=== PATIENT | female | born 1990 | race Caucasian/White ===

== ENCOUNTER 2017-03-16 21:45 | Emergency (ER) | payer MEDICAID ==
[2016-08-09 23:51] VITALS: BMI 37.7
[~2017-03-16 21:45] MED LIST: HYDROCODON-ACE1 EAC7 PO; LAMICTAL200 MG PO
[2017-03-16 23:10] LABS: BASOPHILS 0.1 % (0-2); EOSINOPHILS 1.8 % (0-7); HEMATOCRIT 38.3 % (36.0-48.0); IMMATURE GRANULOCYTES 0.3 % (0-5); LYMPHOCYTES 9.1 % (15-50); MCHC 33.9 g/dL (31.0-37.0); MCV 85.3 fL (80.0-100.0); MEAN PLATELET VOLUME 11.8 fL (7.4-10.4); MONOCYTES 6.9 % (2-11); NEUTROPHILS 81.8 % (40-80); PLATELET COUNT 179 10x3/uL (130-400); RBC 4.49 10x6/uL (4.00-5.40); RDW 13.5 % (11.5-14.5)
[2017-03-16 23:18] LABS: ALBUMIN 3.4 g/dL (3.4-5.0); ALKALINE PHOSPHATASE 95 U/L (46-116); ALT (SGPT) 50 U/L (10-68); CALC OSMOLALITY 276 mosm/kg (275-300); CALCIUM 8.9 mg/dL (8.5-10.1); CARBON DIOXIDE 22.5 mmol/L (21.0-32.0); CHLORIDE - SERUM 105 mmol/L (98-107); CREATININE - SERUM 0.9 mg/dL (0.6-1.3); GLUCOSE 114 mg/dL (74-106); POTASSIUM - SERUM 3.4 mmol/L (3.5-5.1); PROTEIN - SERUM 7.6 g/dL (6.4-8.2); SODIUM 139 mmol/L (136-145); UREA NITROGEN 7 mg/dL (7-18); eGFR NON AFRICAN AMERICAN 81 mL/min (90-120)
[2017-03-16 23:18] LABS: APPEARANCE CLOUDY (CLEAR); BILIRUBIN NEGATIVE (NEGATIVE); COLOR YELLOW (YELLOW); GLUCOSE NEGATIVE (NEGATIVE); KETONE NEGATIVE (NEGATIVE); LEUKOCYTE ESTERASE TRACE (NEGATIVE); NITRITE NEGATIVE (NEGATIVE); PROTEIN NEGATIVE (NEGATIVE); SPECIFIC GRAVITY 1.025 (1.005-1.020)
[2017-03-16 23:22] LABS: TROPONIN-I < 0.017 ng/mL (0.000-0.060)
[2017-03-16 23:24] LABS: UDS - AMPHET NEGATIVE QUAL (NEGATIVE); UDS - BARB NEGATIVE QUAL (NEGATIVE); UDS - BENZO NEGATIVE QUAL (NEGATIVE); UDS - COCAINE NEGATIVE QUAL (NEGATIVE); UDS - METH NEGATIVE QUAL (NEGATIVE); UDS - OPIATE NEGATIVE QUAL (NEGATIVE); UDS - PCP NEGATIVE QUAL (NEGATIVE); UDS - THC NEGATIVE QUAL (NEGATIVE)
[2017-03-16 23:33] LABS: BACTERIA MANY /hpf (NONE SEEN); RED CELLS - URINE 0-5 /hpf (0-5); WHITE CELLS - URINE 0-5 /hpf (0-5)
[2017-03-16 23:34] LABS: HYALINE CAST OCC /lpf (NONE SEEN)
== END 2017-03-17 00:15 | disposition home or self-care (01) ==
LOC: D.ER 21:45
PROVIDERS: Family Medicine; Nurse Practitioner Family
DX: J20.9 Acute bronchitis, unspecified (principal)

== ENCOUNTER 2017-05-18 22:18 | Emergency (ER) | payer MEDICAID ==
[2016-08-09 23:51] VITALS: BMI 37.7
[2017-05-18 23:10] LABS: BASOPHILS 0.1 % (0-2); EOSINOPHILS 0.1 % (0-7); HEMATOCRIT 42.2 % (36.0-48.0); HEMOGLOBIN 14.5 g/dL (12-16); IMMATURE GRANULOCYTES 0.3 % (0-5); LYMPHOCYTES 8.6 % (15-50); MCH 29.1 pg (26.0-34.0); MCHC 34.4 g/dL (31.0-37.0); MCV 84.6 fL (80.0-100.0); MEAN PLATELET VOLUME 11.9 fL (7.4-10.4); MONOCYTES 5.9 % (2-11); RBC 4.99 10x6/uL (4.00-5.40); RDW 13.5 % (11.5-14.5); WBC 17.9 10x3/uL (4.8-10.8)
[2017-05-18 23:13] LABS: PLATELET COUNT 219 10x3/uL (130-400)
[2017-05-18 23:24] LABS: APPEARANCE CLOUDY (CLEAR); BILIRUBIN NEGATIVE (NEGATIVE); COLOR RED (YELLOW); GLUCOSE NEGATIVE (NEGATIVE); KETONE NEGATIVE (NEGATIVE); LEUKOCYTE ESTERASE 1+ (NEGATIVE); NITRITE NEGATIVE (NEGATIVE); PROTEIN 2+ mg/dL (NEGATIVE); UROBILINOGEN NORMAL (NORMAL)
[2017-05-18 23:24] LABS: HCG SERUM NEGATIVE (NEGATIVE)
[2017-05-18 23:25] LABS: BACTERIA MANY /hpf (NONE SEEN); EPITHELIAL CELLS 0-5 /hpf (0-5); RED CELLS - URINE >50 /hpf (0-5)
[2017-05-18 23:26] LABS: WHITE CELLS - URINE 0-5 /hpf (0-5)
[2017-05-18 23:30] LABS: ALBUMIN 3.3 g/dL (3.4-5.0); ANION GAP 14.1 mmol/L (8-16); BILIRUBIN - TOTAL 0.33 mg/dL (0.2-1.3); CALCIUM 8.7 mg/dL (8.5-10.1); CARBON DIOXIDE 22.7 mmol/L (21.0-32.0); POTASSIUM - SERUM 3.8 mmol/L (3.5-5.1); PROTEIN - SERUM 6.9 g/dL (6.4-8.2)
[2017-05-21 07:26] LABS: CHLAMYDIA TRACHOMATIS, NAA Negative (Negative)
== END 2017-05-19 02:36 | disposition home or self-care (01) ==
LOC: D.ER 22:18
PROVIDERS: Family Medicine; Nurse Practitioner Acute Care
DX: R10.9 Unspecified abdominal pain (principal)

== ENCOUNTER 2017-07-15 19:11 | Emergency (ER) | payer MEDICAID ==
[2016-08-09 23:51] VITALS: BMI 37.7
[2017-07-15 19:47] LABS: HCG URINE NEGATIVE (NEGATIVE)
[2017-07-15 19:51] LABS: APPEARANCE HAZY (CLEAR); BILIRUBIN NEGATIVE (NEGATIVE); COLOR YELLOW (YELLOW); GLUCOSE NEGATIVE (NEGATIVE); KETONE NEGATIVE (NEGATIVE); NITRITE NEGATIVE (NEGATIVE); PROTEIN NEGATIVE (NEGATIVE); SPECIFIC GRAVITY 1.025 (1.005-1.020); UROBILINOGEN NORMAL (NORMAL)
[2017-07-15 19:54] LABS: BACTERIA FEW /hpf (NONE SEEN); WHITE CELLS - URINE OCC /hpf (0-5)
[2017-07-15 19:55] LABS: AMORPHOUS SEDIMENT <1+ /lpf (NONE SEEN); EPITHELIAL CELLS 25-50 /hpf (0-5)
[2017-07-15 19:59] LABS: BASOPHILS 0 % (0-2); EOSINOPHILS 1.2 % (0-7); HEMATOCRIT 38.6 % (36.0-48.0); HEMOGLOBIN 12.7 g/dL (12-16); IMMATURE GRANULOCYTES 0.2 % (0-5); LYMPHOCYTES 19.2 % (15-50); MCH 28.3 pg (26.0-34.0); MCHC 32.9 g/dL (31.0-37.0); MEAN PLATELET VOLUME 11.7 fL (7.4-10.4); MONOCYTES 7.6 % (2-11); NEUTROPHILS 71.8 % (40-80); PLATELET COUNT 183 10x3/uL (130-400); RBC 4.49 10x6/uL (4.00-5.40); RDW 12.9 % (11.5-14.5); WBC 8.5 10x3/uL (4.8-10.8)
[2017-07-15 20:21] LABS: ALBUMIN 3.3 g/dL (3.4-5.0); ALKALINE PHOSPHATASE 104 U/L (46-116); ALT (SGPT) 45 U/L (10-68); BILIRUBIN - TOTAL 0.19 mg/dL (0.2-1.3); CALC OSMOLALITY 277 mosm/kg (275-300); CARBON DIOXIDE 24.9 mmol/L (21.0-32.0); CHLORIDE - SERUM 106 mmol/L (98-107); CREATININE - SERUM 0.7 mg/dL (0.6-1.3); GLUCOSE 99 mg/dL (74-106); POTASSIUM - SERUM 3.7 mmol/L (3.5-5.1); PROTEIN - SERUM 7.3 g/dL (6.4-8.2); SODIUM 139 mmol/L (136-145); eGFR NON AFRICAN AMERICAN > 90 mL/min (90-120)
[2017-07-15 20:30] LABS: UREA NITROGEN 13 mg/dL (7-18)
== END 2017-07-15 21:48 | disposition home or self-care (01) ==
LOC: D.ER 19:11
PROVIDERS: Family Medicine
DX: N93.9 Abnormal uterine and vaginal bleeding, unspecified (principal); F17.200 Nicotine dependence, unspecified, uncomplicated

== ENCOUNTER 2017-10-26 00:45 | Emergency (ER) | payer MEDICAID ==
[2016-08-09 23:51] VITALS: BMI 37.7
== END 2017-10-26 02:35 | disposition home or self-care (01) ==
LOC: D.ER 00:45
DX: T16.1XXA Foreign body in right ear, initial encounter (principal); X58.XXXA Exposure to other specified factors, initial encounter; Y93.89 Activity, other specified; Y92.89 Other specified places as the place of occurrence of the external cause; F17.200 Nicotine dependence, unspecified, uncomplicated

== ENCOUNTER 2018-11-09 09:45 | Emergency (ER) | payer MEDICARE ==
[~2018-11-09] VITALS: Ht 144.8 cm; Wt 80.0 kg
[2018-11-09 09:55] VITALS: Ht 144.8 cm; Wt 80.0 kg
[2018-11-09 10:40] LABS: BASOPHILS 0.3 % (0-2); EOSINOPHILS 2.6 % (0-7); HEMATOCRIT 38.2 % (36.0-48.0); HEMOGLOBIN 12.8 g/dL (12-16); IMMATURE GRANULOCYTES 0.3 % (0-5); LYMPHOCYTES 25.8 % (15-50); MCHC 33.5 g/dL (31.0-37.0); MCV 83.6 fL (80.0-100.0); MEAN PLATELET VOLUME 11.9 fL (7.4-10.4); MONOCYTES 8.5 % (2-11); NEUTROPHILS 62.5 % (40-80); PLATELET COUNT 182 10x3/uL (130-400); RBC 4.57 10x6/uL (4.00-5.40); RDW 13.3 % (11.5-14.5)
[2018-11-09 10:44] LABS: HCG URINE POSITIVE (NEGATIVE)
[2018-11-09 10:46] LABS: APPEARANCE CLEAR (CLEAR); BILIRUBIN NEGATIVE (NEGATIVE); COLOR YELLOW (YELLOW); GLUCOSE NEGATIVE (NEGATIVE); KETONE NEGATIVE (NEGATIVE); NITRITE NEGATIVE (NEGATIVE); PROTEIN NEGATIVE (NEGATIVE); UROBILINOGEN NORMAL (NORMAL)
[2018-11-09 10:54] LABS: ALBUMIN 3.5 g/dL (3.4-5.0); ALKALINE PHOSPHATASE 115 U/L (46-116); ALT (SGPT) 31 U/L (10-68); BILIRUBIN - TOTAL 0.25 mg/dL (0.2-1.3); CALC OSMOLALITY 280 mosm/kg (275-300); CALCIUM 8.8 mg/dL (8.5-10.1); CARBON DIOXIDE 23.3 mmol/L (21.0-32.0); CHLORIDE - SERUM 106 mmol/L (98-107); CREATININE - SERUM 0.8 mg/dL (0.6-1.3); GLUCOSE 85 mg/dL (74-106); POTASSIUM - SERUM 3.7 mmol/L (3.5-5.1); PROTEIN - SERUM 7.2 g/dL (6.4-8.2); SODIUM 141 mmol/L (136-145); UREA NITROGEN 14 mg/dL (7-18); eGFR NON AFRICAN AMERICAN > 90 mL/min (90-120)
[2018-11-09] MEDS ORDERED: STOOL SOFTENER240 MG PO (14:50)
[2018-11-09] MEDS ORDERED: OMEPRAZOLE40 MG PO (14:50)
[2018-11-09] MEDS ORDERED: FIBERCON625 MG PO (14:50)
[2018-11-09 15:43] VITALS: BP 127/91
== END 2018-11-09 15:43 | disposition home or self-care (01) ==
LOC: D.ER 09:45
PROVIDERS: Emergency Medicine
DX: K59.00 Constipation, unspecified (principal); K21.9 Gastro-esophageal reflux disease without esophagitis; Z32.02 Encounter for pregnancy test, result negative